=== PATIENT | female | born 1985 | race Caucasian/White ===

== ENCOUNTER 2018-08-14 18:54 | Emergency (ER) | payer SELFPAY ==
[~2018-08-14] VITALS: Ht 160 cm; Wt 93.0 kg
[2018-08-14] MEDS ORDERED: HYDROCODONE/ACETAMINOPHEN 5/325MG TABLET PO ONE (22:30)
[2018-08-14 23:51] VITALS: BP 122/52
== END 2018-08-15 | disposition home or self-care (01) ==
LOC: ER 18:54
DX: S90.01XA Contusion of right ankle, initial encounter (principal); S80.02XA Contusion of left knee, initial encounter; M54.6 Pain in thoracic spine; Z98.890 Other specified postprocedural states; V13.4XXA Pedal cycle driver injured in collision with car, pick-up truck or van in traffic accident, initial encounter; Y93.55 Activity, bike riding; Y92.488 Other paved roadways as the place of occurrence of the external cause
CPT/HCPCS: 72070; 73502; 73560; 73610; 99283